=== PATIENT | male | born 1965 | race Caucasian/White ===

== ENCOUNTER 2017-10-13 08:44 | Inpatient (IN) | payer MEDICARE, OTHER ==
[2017-10-13] MEDS: SOD CHLORIDE 0.9% 1,000 ML IV (09:35)
[2017-10-13] MEDS: ONDANSETRON 4 MG INJ IV (09:35)
[2017-10-13] MEDS: morphine 4 MG/ML VIAL IV (09:37)
[2017-10-13] MEDS: DIPHTH/TET/ACEL PERTUSS (ADULT) 0.5 ML VIAL IM* (09:37)
[2017-10-13 10:06] LABS: ADD MAN DIFF? NO
[2017-10-13 10:25] LABS: WHITE BLOOD COUNT 6.5 10^3/ul (4.8-10.8)
[2017-10-13 10:25] LABS: BASOPHILS % 0.3 % (0.0-2.0); EOSINOPHILS # 0.1 10^3/ul (0.0-0.5); EOSINOPHILS % 0.9 % (0.0-7.0); LYMPHOCYTES # 1.3 10^3/ul (0.8-2.9); LYMPHOCYTES % 19.4 % (15.0-51.0); MEAN CORPUSCULAR HEMOGLOBIN 28.8 pg (29.0-33.0); MEAN CORPUSCULAR HGB CONC 33.3 g/dl (32.0-37.0); MEAN CORPUSCULAR VOLUME 86.5 fl (82.0-101.0); MEAN PLATELET VOLUME 10.2 fl (7.4-10.4); MONOCYTE # 0.5 10^3/ul (0.3-0.9); MONOCYTES % 7.7 % (0.0-11.0); NEUTROPHIL # 4.6 10^3/ul (1.6-7.5); NEUTROPHILS % 70.8 % (39.0-77.0); PLATELET COUNT 173 10^3/UL (140-415); RED BLOOD COUNT 4.51 10^6/ul (4.70-6.10); RED CELL DISTRIBUTION WIDTH 14.1 % (11.5-14.5)
[2017-10-13 10:37] LABS: ALANINE AMINOTRANSFERASE 60 IU/L (13-69); ALBUMIN/GLOBULIN RATIO 1.11; ALKALINE PHOSPHATASE 69 IU/L (42-121); ANION GAP 12 (8-16); ASPARTATE AMINO TRANSFERASE 56 IU/L (15-46); BILIRUBIN,INDIRECT 0.1 mg/dl (0-1.1); BILIRUBIN,TOTAL 0.1 mg/dl (0.2-1.3); BLOOD UREA NITROGEN 16 mg/dl (7-20); CALCIUM 9.3 mg/dl (8.4-10.2); CARBON DIOXIDE 29 mmol/L (21-31); CHLORIDE 105 mmol/L (97-110); CREATININE 1.12 mg/dl (0.61-1.24); GLUCOSE 85 mg/dl (70-220); LIPASE 29 U/L (23-300); POTASSIUM 3.8 mmol/L (3.5-5.1); SODIUM 142 mmol/L (135-144); TOTAL PROTEIN 7.6 g/dl (6.1-8.1)
[2017-10-13 10:57] LABS: TROPONIN-I < 0.012 ng/ml (0.00-0.12)
== END 2017-10-13 13:45 | disposition home or self-care (01) | DRG 562 ==
LOC: TEL 11:35 → E/R 08:44
PROC: 0PSHXZZ Reposition Right Radius, External Approach (ICD-10-PCS; principal; 2017-10-13)
PROC: 0PSKXZZ Reposition Right Ulna, External Approach (ICD-10-PCS; 2017-10-13)
DX: S52.591A Other fractures of lower end of right radius, initial encounter for closed fracture (principal); B20 Human immunodeficiency virus [HIV] disease; S52.614A Nondisplaced fracture of right ulna styloid process, initial encounter for closed fracture; R55 Syncope and collapse; W18.30XA Fall on same level, unspecified, initial encounter; Y92.480 Sidewalk as the place of occurrence of the external cause; E86.0 Dehydration
CPT/HCPCS: 36415; 70450; 71045; 73110-RT; 73562; 80053; 83690; 84484; 85025; 90471; 90715; 93005; 96374; 96375; 99285-25

== ENCOUNTER 2018-03-13 09:40 | Emergency (ER) | payer OTHER, MEDICARE ==
[2018-03-13] MEDS: SOD CHLORIDE 0.9% 1,000 ML IV (10:19)
[2018-03-13 10:32] LABS: ADD MAN DIFF? NO
[2018-03-13 10:33] LABS: WHITE BLOOD COUNT 7.4 10^3/ul (4.8-10.8)
[2018-03-13 10:33] LABS: BASOPHILS % 0.3 % (0.0-2.0); EOSINOPHILS # 0.1 10^3/ul (0.0-0.5); EOSINOPHILS % 0.7 % (0.0-7.0); HEMATOCRIT 45.1 % (42.0-52.0); HEMOGLOBIN 14.6 g/dl (14.0-18.0); LYMPHOCYTES # 2.2 10^3/ul (0.8-2.9); LYMPHOCYTES % 30.4 % (15.0-51.0); MEAN CORPUSCULAR HEMOGLOBIN 29.1 pg (29.0-33.0); MEAN CORPUSCULAR HGB CONC 32.4 g/dl (32.0-37.0); MEAN CORPUSCULAR VOLUME 89.8 fl (82.0-101.0); MEAN PLATELET VOLUME 9.4 fl (7.4-10.4); MONOCYTE # 0.5 10^3/ul (0.3-0.9); MONOCYTES % 6.8 % (0.0-11.0); NEUTROPHIL # 4.5 10^3/ul (1.6-7.5); NEUTROPHILS % 61.3 % (39.0-77.0); PLATELET COUNT 229 10^3/UL (140-415); RED BLOOD COUNT 5.02 10^6/ul (4.70-6.10); RED CELL DISTRIBUTION WIDTH 14.7 % (11.5-14.5)
[2018-03-13] MEDS: VANCOMYCIN 1 GM (PMX) 250 ML IVPB (10:46)
[2018-03-13 11:01] LABS: ALANINE AMINOTRANSFERASE 38 IU/L (13-69); ALBUMIN/GLOBULIN RATIO 1.42; ALKALINE PHOSPHATASE 84 IU/L (42-121); ANION GAP 16 (8-16); ASPARTATE AMINO TRANSFERASE 36 IU/L (15-46); BILIRUBIN,INDIRECT 0.3 mg/dl (0-1.1); BILIRUBIN,TOTAL 0.3 mg/dl (0.2-1.3); BLOOD UREA NITROGEN 16 mg/dl (7-20); CALCIUM 9.8 mg/dl (8.4-10.2); CARBON DIOXIDE 26 mmol/L (21-31); CHLORIDE 106 mmol/L (97-110); CREATININE 0.98 mg/dl (0.61-1.24); GLUCOSE 114 mg/dl (70-220); LIPASE 45 U/L (23-300); POTASSIUM 4.2 mmol/L (3.5-5.1); SODIUM 144 mmol/L (135-144); TOTAL PROTEIN 8.5 g/dl (6.1-8.1)
[2018-03-13 11:36] LABS: ADD UMIC NO; UR ASCORBIC ACID 40 mg/dL (NEGATIVE); UR BILIRUBIN (Dip) NEGATIVE (NEGATIVE); UR BLOOD (Dip) NEGATIVE (NEGATIVE); UR CLARITY CLEAR (CLEAR); UR COLOR YELLOW (YELLOW); UR GLUCOSE (Dip) NEGATIVE (NEGATIVE); UR KETONES (Dip) NEGATIVE (NEGATIVE); UR LEUKOCYTE ESTERASE (Dip) NEGATIVE Leu/ul (NEGATIVE); UR NITRITE (Dip) NEGATIVE (NEGATIVE); UR SPECIFIC GRAVITY (Dip) 1.021 (1.003-1.030); UR TOTAL PROTEIN (Dip) NEGATIVE (NEGATIVE); UR UROBILINOGEN (Dip) NEGATIVE (NEGATIVE)
[2018-03-13] MEDS: CLINDAMYCIN 600 MG/D5W (PMX) 50 ML IVPB (13:08)
== END 2018-03-13 14:16 | disposition home or self-care (01) ==
LOC: FTE 09:40
DX: I89.1 Lymphangitis (principal); Z91.010 Allergy to peanuts
CPT/HCPCS: 36415; 80053; 81003; 83690; 85025; 87040; 96365; 96366; 96367; 99284-25

== ENCOUNTER 2018-04-21 09:35 | Emergency (ER) | payer OTHER, MEDICARE ==
[2018-04-21] MEDS: predniSONE 20 MG TAB PO (09:57)
[2018-04-21] MEDS: morphine 4 MG/ML VIAL IM (09:57)
== END 2018-04-21 12:38 | disposition home or self-care (01) ==
LOC: E/R 09:35
DX: M54.41 Lumbago with sciatica, right side (principal); S39.92XD Unspecified injury of lower back, subsequent encounter; X58.XXXD Exposure to other specified factors, subsequent encounter; Z91.010 Allergy to peanuts
CPT/HCPCS: 96372; 99284-25

== ENCOUNTER 2018-06-11 09:58 | Emergency (ER) | payer OTHER, MEDICARE | END 2018-06-11 11:14 | disposition home or self-care (01) | LOC: FTE 09:58 | DX: M62.830 Muscle spasm of back (principal); Z21 Asymptomatic human immunodeficiency virus [HIV] infection status | CPT/HCPCS: 99283; Z7502 ==